=== PATIENT | female | born 1975 | race American Indian/Alaskan Native ===

== ENCOUNTER 2017-11-07 13:50 | Emergency (ER) | payer SELFPAY ==
[2017-11-07 14:16] VITALS: BP 112/76
== END 2017-11-07 18:58 | disposition left against medical advice (07) ==
LOC: ED 13:50
DX: R07.9 Chest pain, unspecified (principal); Z53.21 Procedure and treatment not carried out due to patient leaving prior to being seen by health care provider
CPT/HCPCS: 93005; 93010

== ENCOUNTER 2018-02-12 07:21 | Emergency (ER) | payer SELFPAY ==
[2018-02-12 07:54] LABS: Basophils % (Auto) 0.2 % (0.0-1.8); Eosinophils % (Auto) 0.6 % (0.0-4.3); Hematocrit 28.9 % (30.3-42.9); Hemoglobin 9.4 gm/dl (10.1-14.3); Lymphocytes # (Auto) 0.7 K/mm3 (1.2-5.4); Lymphocytes % (Auto) 11.6 % (13.4-35.0); Mean Corpuscular HGB Conc 32 % (30-34); Mean Corpuscular Volume 77 fl (79-97); Monocytes # (Auto) 0.4 K/mm3 (0.0-0.8); Monocytes % (Auto) 6.2 % (0.0-7.3); Platelet Count 237 K/mm3 (140-440); Red Blood Count 3.74 M/mm3 (3.65-5.03)
[2018-02-12 07:56] LABS: Mean Corpuscular Hemoglobin 25 pg (28-32); Red Cell Distribution Width 22.4 % (13.2-15.2)
[2018-02-12 08:14] LABS: Alanine Aminotransferase 10 units/L (7-56); Albumin 3.7 g/dL (3.9-5); BUN/Creatinine Ratio 17; Blood Urea Nitrogen 10 mg/dL (7-17); Calcium 8.9 mg/dL (8.4-10.2); Hemolysis Index 1
[2018-02-12] MEDS ORDERED: ZOFRAN IV ONE (11:11)
[2018-02-12] MEDS ORDERED: NACL 0.9% 1000 ML 1,000 ML IV ONE (11:11)
[2018-02-12] MEDS ORDERED: TORADOL IV ONE (11:32)
[2018-02-12] MEDS ORDERED: SUBLIMAZE IV ONE (11:33)
[2018-02-12 12:45] LABS: Mucus,Urine FEW /HPF
[2018-02-12 12:56] LABS: Color,Urine Straw (Yellow)
[2018-02-12 12:57] LABS: Bilirubin,Urine Negative (Negative)
[2018-02-12 12:58] LABS: Blood,Urine 2+ (Negative)
--- NOTE | 2018-02-12 14:15 | Emergency Department Report ---
HPI - General Chief Complaint: Abdominal Pain Time Seen by Provider: 02/12/18 10:27 - HPI HPI: The patient is a 42-year-old female with a history of biliary colic and gallstones, who presents for evaluation of abdominal pain. The patient reports bilateral abdominal pain for the past 2 days, on and off, cramping and sharp in quality, 10/10 severity, exacerbated with retching, and associated with nausea, and multiple episodes of nonbilious, nonbloody emesis, and loose watery stools, border blood. The patient denies fever, chills, night sweats, diarrhea, blood in the stool, dark tarry stool, dysuria, hematuria, flank pain, genital discharge, inability to pass flatus. ED Past Medical Hx - Past Medical History Previous Medical History?: Yes Hx Sickle Cell Disease: Yes (trait) Additional medical history: "panic attacks", heart murmur - Surgical History Past Surgical History?: No - Social History Smoking Status: Current Every Day Smoker Substance Use Type: Alcohol - Medications Home Medications: Home Medications Medication Instructions Recorded Confirmed Last Taken Type HYDROcodone/APAP 5-325 [[place] 1 each PO Q6HR PRN #14 tablet 02/12/18 Unknown Rx 5/325] Omeprazole Magnesium [PriLOSEC Otc] 20 mg PO QDAY #14 tablet. 02/12/18 Unknown Rx Ondansetron [Zofran TAB] 4 mg PO Q8HR PRN #20 tablet 02/12/18 Unknown Rx ED Review of Systems ROS: Stated complaint: STOMACH PAIN/VOMITING Other details as noted in HPI Constitutional: denies: fever ENT: denies: throat or neck pain Respiratory: denies: cough, shortness of breath Cardiovascular: denies: chest pain Endocrine: denies unexplained weight loss or gain Gastrointestinal: reports abdominal pain, nausea Genitourinary: denies: dysuria Musculoskeletal: denies: leg swelling Skin: denies: rash Neurological: denies: headache Hematological/Lymphatic: denies: easy bleeding or easy bruising Psych: denies sadness or hopelessness Physical Exam - Physical Exam Vital Signs: Vital Signs 02/12/18 02/12/18 07:30 13:17 Temperature 98 F Pulse Rate 61 Respiratory 17 20 Rate Blood Pressure 106/47 O2 Sat by Pulse 100 Oximetry Physical Exam: General: well-nourished, well-developed, no acute distress Head: Normocephalic, atraumatic Eyes: normal sclera ENT: Mucous membranes are pale and dry Neck: No neck stiffness, no cervical adenopathy Respiratory: Breath sounds equal bilaterally, no wheezing, rales, or rhonchi Cardio: S1 and S2 present, no murmurs, rubs, gallops, capillary refill is delayed Abdomen: Normoactive bowel sounds, soft abdomen, periumbilical tenderness to palpation present, no rigidity, no guarding or rebound tenderness Chest WALL/Back: No tenderness to palpation of the chest wall, no CVA tenderness with percussion Musc: No pitting edema Skin: No rash Neuro: no facial drooping, normal speech Psych: Normal affect ED Course Vital Signs 02/12/18 02/12/18 07:30 13:17 Temperature 98 F Pulse Rate 61 Respiratory 17 20 Rate Blood Pressure 106/47 O2 Sat by Pulse 100 Oximetry ED Medical Decision Making - Lab Data Result diagrams: 02/12/18 07:39 02/12/18 07:39 - Medical Decision Making The patient was seen and examined by myself. The patient is placed on a personnel monitor and continuous pulse ox. On initial evaluation, the patient was found to be in no distress. Evaluation orders are placed. IV access is established and the patient is given 1 L normal saline fluid bolus and Zofran for nausea, and IV analgesic for pain Lab results were non-concerning including WBC, hemoglobin, hematocrit, electrolytes, renal function, LFTs, lipase, and urinalysis. The patient was reevaluated and reported that their symptoms were markedly improved. The patient is stable for discharge with outpatient follow-up. The patient is given follow-up and return instructions. The patient expressed understanding and agreed with the plan. The patient is discharged in stable condition. Critical care attestation.: If time is entered above; I have spent that time in minutes in the direct care of this critically ill patient, excluding procedure time. ED Disposition Clinical Impression: Acute bilateral lower abdominal pain, Nausea and vomiting in adult, Dehydration Disposition: - TO HOME OR SELFCARE Is pt being admited?: No Does the pt Need Aspirin: No Condition: Stable Instructions: Abdominal Pain (ED), Biliary Colic (ED), Gastroenteritis (ED) Referrals: PRIMARY CARE,MD [Primary Care Provider] - 3-5 Days SOLO MCMANUS DO [Staff Physician] - 3-5 Days [facility] [Provider Group] - 3-5 Days Time of Disposition: 14:11
[2018-02-12 14:25] VITALS: BP 112/76
== END 2018-02-12 14:49 | disposition home or self-care (01) ==
LOC: ED 07:21
DX: R10.31 Right lower quadrant pain (principal); R10.32 Left lower quadrant pain; E86.0 Dehydration; R11.2 Nausea with vomiting, unspecified; D57.3 Sickle-cell trait; F17.200 Nicotine dependence, unspecified, uncomplicated; Z91.013 Allergy to seafood
CPT/HCPCS: 36415; 80053; 81001; 83690; 84703; 85025; 96361; 96374; 96375; 99284; J1885; J2405; J3010; J7030